=== PATIENT | male | born 2000 | race Asian ===

== ENCOUNTER → 2023-03-03 07:56 | Outpatient (CLI) | payer OTHER, SELFPAY ==
--- NOTE | 2023-03-03 | DI.US.S_ITS ---
PROCEDURE: US EXTREMITY NONVASC LOWER LT INDICATIONS: LEFT UPPER THIGH MASS TECHNIQUE: Real-time scanning was performed of the left upper thigh, with image documentation. COMPARISON: None. FINDINGS: Focused ultrasound examination of left upper thigh at patient's reported area of palpable lump shows well-circumscribed hypoechoic and predominantly solid-appearing structure with internal cystic areas and punctate echogenic foci in subcutaneous soft tissue and measures 2.4 x 2.1 x 1.4 cm in size. Internal vascularity is seen. No definite underlying muscle involvement. IMPRESSION: Predominantly solid soft tissue mass in left upper thigh as described above. Finding may represent benign or malignant soft tissue neoplasm. Consider biopsy or excision for more definitive diagnosis. No definite underlying muscle involvement is seen. Dictated by: Lopez Mathews M.D. on 03/03/2023 at 11:35 Approved by: Lopez Mathews M.D. on 03/03/2023 at 11:40
== END ==
PROVIDERS: Referring Provider Internal Medicine; Visit Provider Internal Medicine
DX: R22.42 Localized swelling, mass and lump, left lower limb (principal)
CPT/HCPCS: 76882